=== PATIENT | female | born 1965 | race Caucasian/White ===

== ENCOUNTER 2016-10-01 11:50 | Emergency (ER) | payer OTHER ==
[~2016-10-01] VITALS: Ht 152.4 cm; Wt 59.1 kg
[~2016-10-01 11:50] MED LIST: COLACE 100100 MG/CAP PO; FLEXERIL 1010 MG/TAB PO; GLUCOPHAGE500 MG/TAB PO; MOTRIN 200200 MG/TAB PO; MOTRIN 600600 MG/TAB PO; NATURE'S BLEND1 SG3 PO; NORCO 325 MG-51 TAB PO; PERCOCET 325 MG1 TA2 PO; ROXICODONE 55 MG/TAB PO; ZOFRAN ODT4 MG PO
[2016-10-01 11:53] VITALS: BP 118/78; PULSE 74; TEMP 98.3
[2016-10-01 13:24] LABS: ADJUSTED CALCIUM 9.3 mg/dL (8.4-10.2); ALBUMIN 4.5 gm/dL (3.5-5.0); BASO % 0.5 % (0.0-2.0); BILIRUBIN,TOTAL 0.9 mg/dL (0.0-1.0); CALCIUM 9.7 mg/dL (8.4-10.2); CREATININE, serum 0.48 mg/dL (0.52-1.25); EOS # 0.1 (0.0-0.7); EOS % 1.1 % (0-4.0); GRAN # 4.2 (1.4-6.5); GRAN % 64.5 % (42.2-75.2); HEMATOCRIT 39.8 % (37.0-47.0); HEMOGLOBIN 13.8 g/dl (12.5-16.0); LYMPH # 1.8 (1.2-3.4); LYMPH % 27.8 % (20.0-51.0); MEAN CELL VOLUME 86 fl (80.0-100.0); MEAN CORPUSCULAR HEMOGLOBIN 30 pg (27.0-31.0); MEAN CORPUSCULAR HGB CONC 35 g/dl (33.0-37.0); MEAN PLATELET VOLUME 9.4 fl (7.4-10.4); MONO # 0.4 (0.1-0.6); MONO % 5.8 % (1.7-9.3); PLATELET COUNT 256 K/mm3 (130-400); POTASSIUM 3.9 mmol/L (3.4-5.0); RED BLOOD COUNT 4.61 M/mm3 (4.10-5.30); REDCELL DISTRIBUTION WIDTH-CV 12.7 % (11.5-14.5); TOTAL PROTEIN 8.3 gm/dL (6.4-8.2); WHITE BLOOD COUNT 6.5 K/mm3 (4.8-10.8)
[2016-10-01 13:28] LABS: C-REACTIVE PROTEIN 0.5 mg/dL (0.0-0.9)
[2016-10-01 13:48] LABS: ERYTHROCYTE SEDIMENTATION RATE 12 mm/hr (0-20)
[2016-10-01] MEDS ORDERED: NORCO 325 MG-51 TAB PO (14:56)
[2016-10-01] MEDS ORDERED: PREDFORTE5ML OD (14:56)
== END 2016-10-01 15:08 | disposition home or self-care (01) ==
LOC: COL.ER 11:50
PROVIDERS: Physician Assistant
DX: H20.00 Unspecified acute and subacute iridocyclitis (principal); E11.9 Type 2 diabetes mellitus without complications; I10 Essential (primary) hypertension
CPT/HCPCS: Q9967

== ENCOUNTER 2016-10-16 13:29 | Emergency (ER) | payer OTHER ==
[~2016-10-16] VITALS: Ht 152.4 cm; Wt 70.5 kg
[~2016-10-16 13:29] MED LIST changes: +PREDFORTE5ML OD
[2016-10-16 13:31] VITALS: TEMP 98.4
[2016-10-16] MEDS ORDERED: PROZAC 10MG10 MG PO (13:58)
[2016-10-16] MEDS ORDERED: ZOCOR 10MG10 MG PO (13:59)
[2016-10-16] MEDS ORDERED: PRINIVIL5 MG PO (13:59)
[2016-10-16] MEDS ORDERED: INVOKAMET1 (14:00)
[2016-10-16 14:27] LABS: BASO % 0.5 % (0.0-2.0); EOS % 0.4 % (0-4.0); GRAN # 4.3 (1.4-6.5); GRAN % 75.5 % (42.2-75.2); HEMATOCRIT 43.2 % (37.0-47.0); LYMPH # 0.9 (1.2-3.4); LYMPH % 15.6 % (20.0-51.0); MEAN CELL VOLUME 85 fl (80.0-100.0); MEAN CORPUSCULAR HEMOGLOBIN 29 pg (27.0-31.0); MEAN CORPUSCULAR HGB CONC 35 g/dl (33.0-37.0); MONO # 0.4 (0.1-0.6); MONO % 7.6 % (1.7-9.3); PLATELET COUNT 262 K/mm3 (130-400); RED BLOOD COUNT 5.11 M/mm3 (4.10-5.30); REDCELL DISTRIBUTION WIDTH-CV 12.4 % (11.5-14.5); WHITE BLOOD COUNT 5.7 K/mm3 (4.8-10.8)
[2016-10-16 14:37] LABS: PH 5 (5-8); SQUAMOUS EPITHELIAL 0-2 /hpf; URINE APPEARANCE Clear; URINE BACTERIA None Seen /hpf; URINE BILIRUBIN Negative (NEGATIVE); URINE BLOOD 1+ (NEGATIVE); URINE COLOR Yellow; URINE GLUCOSE 3+ (NEGATIVE); URINE KETONE Trace (NEGATIVE); URINE UROBILINOGEN Negative (NEGATIVE)
[2016-10-16 14:38] LABS: ADJUSTED CALCIUM 9.1 mg/dL (8.4-10.2); ALBUMIN 4.5 gm/dL (3.5-5.0); BILIRUBIN,TOTAL 0.8 mg/dL (0.0-1.0); CALCIUM 9.5 mg/dL (8.4-10.2); CREATININE, serum 0.51 mg/dL (0.52-1.25); POTASSIUM 3.5 mmol/L (3.4-5.0); TOTAL PROTEIN 8.3 gm/dL (6.4-8.2)
[2016-10-16 16:34] VITALS: BP 144/80; PULSE 78
== END 2016-10-16 16:35 | disposition home or self-care (01) ==
LOC: COL.ER 13:29
PROVIDERS: Nurse Practitioner
DX: R10.84 Generalized abdominal pain (principal); T38.3X5A Adverse effect of insulin and oral hypoglycemic [antidiabetic] drugs, initial encounter; R11.2 Nausea with vomiting, unspecified; M54.5 Low back pain; E11.9 Type 2 diabetes mellitus without complications; Z79.84 Long term (current) use of oral hypoglycemic drugs; I10 Essential (primary) hypertension
CPT/HCPCS: J1170; J2405; J7030

== ENCOUNTER → 2017-05-19 | Outpatient (CLI) | payer SELFPAY ==
[~2017-05-19] MED LIST changes: +INVOKAMET1; +PRINIVIL5 MG PO; +PROZAC 10MG10 MG PO; +ZOCOR 10MG10 MG PO
== END ==
LOC: COL.RAD 12:44
DX: N32.89 Other specified disorders of bladder (principal); R10.2 Pelvic and perineal pain; R15.9 Full incontinence of feces; Z90.710 Acquired absence of both cervix and uterus

== ENCOUNTER 2018-04-28 15:50 | Emergency (ER) | payer BC ==
[2018-04-28 16:07] VITALS: TEMP 98
[2018-04-28] MEDS ORDERED: GLUCOPHAGE1000 MG PO (16:24)
[2018-04-28 17:01] LABS: BASO % 0.6 % (0.0-2.0); EOS # 0.1 (0.0-0.7); EOS % 1.8 % (0-4.0); GRAN # 3.8 (1.4-6.5); GRAN % 56.4 % (42.2-75.2); HEMATOCRIT 40.2 % (37.0-47.0); HEMOGLOBIN 13.7 g/dl (12.5-16.0); LYMPH # 2.2 (1.2-3.4); LYMPH % 33.2 % (20.0-51.0); MEAN CELL VOLUME 86 fl (80.0-100.0); MEAN CORPUSCULAR HEMOGLOBIN 29 pg (27.0-31.0); MEAN CORPUSCULAR HGB CONC 34 g/dl (33.0-37.0); MEAN PLATELET VOLUME 9.6 fl (7.4-10.4); MONO # 0.5 (0.1-0.6); MONO % 7.9 % (1.7-9.3); PLATELET COUNT 267 K/mm3 (130-400); RED BLOOD COUNT 4.66 M/mm3 (4.10-5.30); REDCELL DISTRIBUTION WIDTH-CV 12.5 % (11.5-14.5)
[2018-04-28] MEDS ORDERED: TYLENOL W/COD1 UDTAB PO (17:33)
[2018-04-28 18:53] VITALS: BP 136/66; PULSE 69
== END 2018-04-28 18:50 | disposition home or self-care (01) ==
LOC: COL.ER 15:50
PROVIDERS: Emergency Medicine
DX: M77.32 Calcaneal spur, left foot (principal); M77.8 Other enthesopathies, not elsewhere classified; E11.9 Type 2 diabetes mellitus without complications; Z79.84 Long term (current) use of oral hypoglycemic drugs

== ENCOUNTER → 2018-09-29 | Outpatient (CLI) | payer BC ==
[~2018-09-29] MED LIST changes: +GLUCOPHAGE1000 MG PO; +TYLENOL W/COD1 UDTAB PO
== END ==
LOC: COL.RAD 08:04
DX: M77.32 Calcaneal spur, left foot (principal)

== ENCOUNTER → 2018-10-27 | Outpatient (CLI) | payer BC | LOC: MC.RAD 12:30 | DX: Z12.31 Encounter for screening mammogram for malignant neoplasm of breast (principal) ==

== ENCOUNTER → 2018-12-29 | Outpatient (CLI) | payer BC ==
[~2018-12-29] MED LIST changes: +NEXIUM 40MG40 MG PO; +XALATAN EYE DROPS OD
[2018-12-29 15:43] LABS: BASO % 0.6 % (0.0-2.0); EOS # 0.1 (0.0-0.7); EOS % 1.9 % (0-4.0); GRAN # 2.9 (1.4-6.5); HEMATOCRIT 39.6 % (37.0-47.0); HEMOGLOBIN 13.4 g/dl (12.5-16.0); LYMPH # 2.1 (1.2-3.4); LYMPH % 38.2 % (20.0-51.0); MEAN CELL VOLUME 87 fl (80.0-100.0); MEAN CORPUSCULAR HEMOGLOBIN 30 pg (27.0-31.0); MEAN CORPUSCULAR HGB CONC 34 g/dl (33.0-37.0); MEAN PLATELET VOLUME 9.6 fl (7.4-10.4); MONO # 0.3 (0.1-0.6); MONO % 6.1 % (1.7-9.3); PLATELET COUNT 261 K/mm3 (130-400); RED BLOOD COUNT 4.53 M/mm3 (4.10-5.30); REDCELL DISTRIBUTION WIDTH-CV 12.5 % (11.5-14.5)
[2018-12-29 15:45] LABS: INR 0.9 (0.8-3.0); PROTHROMBIN TIME 10.8 SECONDS (9.7-12.8)
[2018-12-29 16:30] LABS: ALBUMIN 4.3 gm/dL (3.5-5.0); BILIRUBIN,TOTAL 0.4 mg/dL (0.0-1.0); CALCIUM 9.8 mg/dL (8.4-10.2); CREATININE, serum 0.54 (0.52-1.25); POTASSIUM 3.8 mmol/L (3.4-5.0); TOTAL PROTEIN 7.5 gm/dL (6.4-8.2)
[2018-12-29 23:32] LABS: HEPATITIS B SURFACE ANTIGEN Negative (Negative)
[2019-01-02 10:33] LABS: CERULOPLASMIN 28.5 mg/dL (())
[2019-01-02 14:22] LABS: ANTISMOOTH MUSCLE ANTIBODY Negative (Negative)
== END ==
LOC: COL.RAD 14:25
PROVIDERS: Physician Assistant
DX: K76.0 Fatty (change of) liver, not elsewhere classified (principal); R12 Heartburn; R11.10 Vomiting, unspecified

== ENCOUNTER 2019-01-03 13:00 | Day surgery (SDC) | payer BC ==
[~2019-01-03] VITALS: Ht 152.4 cm; Wt 70.4 kg
[~2019-01-03 13:00] MED LIST changes: -NEXIUM 40MG40 MG PO; -XALATAN EYE DROPS OD
[2019-01-03] MEDS ORDERED: NEXIUM 40MG40 MG PO (13:24)
[2019-01-03] MEDS ORDERED: XALATAN EYE DROPS OD (13:26)
[2019-01-03 13:29] VITALS: BP 119/60; PULSE 71; TEMP 97.8
--- NOTE | 2019-01-03 14:10 | NUR ---
Initial visit; Patient request for prayer prior to 'Procedure.' Glass Curvature Gauger offered reassurance, comfort and prayer.
[2019-01-03 14:45] VITALS: BP 91/64; PULSE 72; TEMP 97.4
--- NOTE | 2019-01-03 14:45 | NUR ---
Report received from MONIQUE Woodard. Pt brought back to [place] [facility] via cart and this RN assist. Pt ambulates from cart to recliner with RN assist without complications. Monitors on and alarms set. Call light within reach. Pt drowsy but answers all questions appropriately. in room. Pt requests muffin and coffee. Pt denies pain or nausea.
--- NOTE | 2019-01-03 14:55 | NUR ---
Dr. Evangelista in to visit with patient and .
[2019-01-03 15:00] VITALS: BP 111/70; PULSE 66
--- NOTE | 2019-01-03 15:00 | NUR ---
Pt taking food and drink well. Pt alert.
[2019-01-03 15:15] VITALS: BP 113/41; PULSE 69
--- NOTE | 2019-01-03 15:20 | NUR ---
Pt desires to be discharged. Pt denies any pain or nausea or other complications.
[2019-01-03 15:30] VITALS: BP 107/57; PULSE 68
--- NOTE | 2019-01-03 15:35 | NUR ---
Discharge instructions given to patient and . Italian written instructions given. All questions answered to their satisfaction. Handed to them are a thank you card, discharge instructions, diagnosis information, and a discharge med sheet.
--- NOTE | 2019-01-03 15:40 | NUR ---
Pt transferred out of hospital via wheelchair and this RN assist with accompanying to private vehicle driven by .
== END 2019-01-03 15:40 | disposition home or self-care (01) ==
LOC: SDCO 13:00
DX: K21.9 Gastro-esophageal reflux disease without esophagitis (principal); K44.9 Diaphragmatic hernia without obstruction or gangrene; K25.9 Gastric ulcer, unspecified as acute or chronic, without hemorrhage or perforation; K29.70 Gastritis, unspecified, without bleeding; K57.30 Diverticulosis of large intestine without perforation or abscess without bleeding; R19.7 Diarrhea, unspecified; R94.5 Abnormal results of liver function studies; Z90.710 Acquired absence of both cervix and uterus; E11.9 Type 2 diabetes mellitus without complications; Z79.84 Long term (current) use of oral hypoglycemic drugs; E66.9 Obesity, unspecified
CPT/HCPCS: J2704; J7030

== ENCOUNTER → 2019-02-28 | Outpatient (CLI) | payer BC ==
[~2019-02-28] MED LIST changes: +NEXIUM 40MG40 MG PO; +XALATAN EYE DROPS OD
== END ==
LOC: COL.RAD 09:40
DX: K21.9 Gastro-esophageal reflux disease without esophagitis (principal)
CPT/HCPCS: A9537

== ENCOUNTER → 2019-03-06 | Outpatient (CLI) | payer BC | LOC: COL.RAD 07:30 | DX: K21.9 Gastro-esophageal reflux disease without esophagitis (principal) | CPT/HCPCS: A9541 ==

== ENCOUNTER → 2019-08-16 | Outpatient (CLI) | payer BC ==
[2019-08-16 13:50] LABS: ALBUMIN 4.5 gm/dL (3.5-5.0); BILIRUBIN,TOTAL 0.4 mg/dL (0.0-1.0); CALCIUM 9.3 mg/dL (8.4-10.2); CREATININE, serum 0.51 (0.52-1.25); POTASSIUM 3.7 mmol/L (3.4-5.0); TOTAL PROTEIN 7.9 gm/dL (6.4-8.2)
== END ==
LOC: COL.RAD 12:37
PROVIDERS: Physician Assistant
DX: Z01.812 Encounter for preprocedural laboratory examination (principal); R13.10 Dysphagia, unspecified

== ENCOUNTER → 2019-09-21 | Outpatient (CLI) | payer BC ==
--- NOTE | 2019-09-21 08:30 | NUR ---
pt to rad holding area from CT scanner, pt speaks polish but uses phone. c/o watery itching eyes, face slightly flushed. No c/o SOB or wheezing. has faint red rash on portion of back. Order from Dr Maza for Benadryl 50mg IV, INT started #22 to LAC and med given at 0840. b/p153/77, sat 98%, pulse 83, rr at 16
--- NOTE | 2019-09-21 09:02 | NUR ---
PT WALKED TO CART TO REST BAY 1, EYES REMAIN PUFFY, NO OTHER SYMPTOMS, 132/76 96%, PULSE 66 RR AT 16
--- NOTE | 2019-09-21 10:40 | NUR ---
DR BARCLAY CAME TO CHECK ON THE PT AT 1020. PT WAS FEELING BETTER AND THE EYE SWELLING HAD GONE DOWN. INSTRUCTIONS WERE GIVEN TO RETAKE BENADRYL 50 MG PO AT 1200. NURSE WROTE ON THE PT'S ALLERGY CARD THAT SHE IS ALLERGIC TO IV CONTRAST DYE. NO REP PROBLEMS, NO FURTHER HIVES OR SWELLING OF THE EYES. PT WAS TAKEN DOWN STAIRS AMBULATORY BY STAFF. PRESENT. WRITTEN INSTRUCTURES GIVEN TO .
== END ==
LOC: COL.RAD 07:46
DX: N28.9 Disorder of kidney and ureter, unspecified (principal); K29.70 Gastritis, unspecified, without bleeding; K76.0 Fatty (change of) liver, not elsewhere classified; K58.9 Irritable bowel syndrome, unspecified
CPT/HCPCS: J1200; Q9967

== ENCOUNTER → 2019-10-08 | Outpatient (CLI) | payer BC | LOC: COL.RAD 08:09 | DX: M72.2 Plantar fascial fibromatosis (principal) ==

== ENCOUNTER → 2020-05-21 | Outpatient (CLI) | payer BC ==
[2020-05-21 15:08] LABS: BASO % 0.4 % (0.0-2.0); EOS # 0.1 (0.0-0.7); EOS % 1.8 % (0-4.0); GRAN # 2.4 (1.4-6.5); GRAN % 52.4 % (42.2-75.2); HEMATOCRIT 39.3 % (37.0-47.0); HEMOGLOBIN 13.2 g/dl (12.5-16.0); LYMPH # 1.7 (1.2-3.4); LYMPH % 36.8 % (20.0-51.0); MEAN CELL VOLUME 87 fl (80.0-100.0); MEAN CORPUSCULAR HEMOGLOBIN 29 pg (27.0-31.0); MEAN CORPUSCULAR HGB CONC 34 g/dl (33.0-37.0); MEAN PLATELET VOLUME 8.9 fl (7.4-10.4); MONO # 0.4 (0.1-0.6); MONO % 8.4 % (1.7-9.3); PLATELET COUNT 274 K/mm3 (130-400); REDCELL DISTRIBUTION WIDTH-CV 12.1 % (11.5-14.5)
[2020-05-21 15:18] LABS: ALBUMIN 4.6 gm/dL (3.5-5.0); BILIRUBIN,TOTAL 0.6 mg/dL (0.0-1.0); CALCIUM 9.3 mg/dL (8.4-10.2); CREATININE, serum 0.52 (0.52-1.25); TOTAL PROTEIN 7.9 gm/dL (6.4-8.2)
== END ==
LOC: COL.LAB 14:35
PROVIDERS: Internal Medicine Gastroenterology
DX: R14.1 Gas pain (principal); R14.0 Abdominal distension (gaseous); R10.11 Right upper quadrant pain

== ENCOUNTER → 2020-05-29 | Outpatient (CLI) | payer BC | LOC: COL.RAD 11:03 | DX: R10.11 Right upper quadrant pain (principal); R14.0 Abdominal distension (gaseous); R14.1 Gas pain | CPT/HCPCS: A9537; J2805 ==

== ENCOUNTER 2020-06-24 07:22 | Day surgery (SDC) | payer BC ==
[2020-06-24] VITALS (9 sets, daily range): BP systolic 116–138; BP diastolic 59–68; PULSE 62–76; TEMP 97.2–98.5
[~2020-06-24] VITALS: Ht 147.3 cm; Wt 63.2 kg
[2020-06-24] MEDS ORDERED: VITAMIN D 50,1.25 MG PO (08:59)
[2020-06-24] MEDS ORDERED: ZYRTEC 10MG10 MG PO (09:00)
--- NOTE | 2020-06-24 09:46 | NUR ---
Initial visit; Patient and spouse primarily Libyan speaking although were pleased to have [employer] Director offer prayer prior to Mounika's surgical procedure. Patient is [place].
[2020-06-24] MEDS ORDERED: NORCO 325 MG-51 TAB PO (10:47)
--- NOTE | 2020-06-24 11:20 | NUR ---
Pt to [facility] via cart from PACU. Pt drowsy, but awake. Pt rates pain 9/10 to abdomen. Denies nausea. in room. Bandaids to abdomen are clean, dry, and intact x3. VSS. Will continue to monitor. Call light within reach.
--- NOTE | 2020-06-24 11:35 | NUR ---
[place] 5/325mg 1 tablet po given for pain. Pt takes sips of water without difficulties. Crackers given to try to eat. Will continue to monitor. Call light within reach.
--- NOTE | 2020-06-24 11:50 | NUR ---
Pt resting. Pt able to eat a few crackers and is tolerating PO fluids without difficulties. Will continue to monitor. Call light within reach.
--- NOTE | 2020-06-24 12:05 | NUR ---
Pt rates pain 6/10 to abdomen. Pt states "It's a little better." Denies nausea. Call light within reach.
--- NOTE | 2020-06-24 12:35 | NUR ---
Pt up to restroom with stand by assistance. Pt voids without difficulties. Pt back to room. Pt c/o nausea upon returning back to room and had a few dry heaves. Will provide nausea medication per PRN orders. Call light within reach.
--- NOTE | 2020-06-24 13:05 | NUR ---
Pt continues to rest. Zofan 4mg IVSP given at 1253 for c/o nausea. Pt reports her nausea is "Better." Pt requested food and water to drink. Muffin and water provided. Call light within reach.
--- NOTE | 2020-06-24 14:05 | NUR ---
Pt was having pain-rated 6/10 to abdomen [place] 5/325mg 1 tab po given per PRN orders at 1340. Pt rates pain 3/10 at this time. Call light within reach.
--- NOTE | 2020-06-24 14:30 | NUR ---
Discharge instructions reviewed. Pt voices understanding. IV site discontinued with all parts intact. Pt up to dress. Call light within reach.
--- NOTE | 2020-06-24 14:45 | NUR ---
Pt escorted to private car via wheel chair. Pt accompanied home by her .
== END 2020-06-24 14:45 | disposition home or self-care (01) ==
LOC: SDCO 07:22
DX: K81.1 Chronic cholecystitis (principal); E11.9 Type 2 diabetes mellitus without complications; Z90.710 Acquired absence of both cervix and uterus; K59.04 Chronic idiopathic constipation; Z79.84 Long term (current) use of oral hypoglycemic drugs; Z88.2 Allergy status to sulfonamides; Z88.8 Allergy status to other drugs, medicaments and biological substances; Z91.041 Radiographic dye allergy status; Z20.828 Contact with and (suspected) exposure to other viral communicable diseases
CPT/HCPCS: J0690; J1100; J1885; J2405; J2704; J3010; J7120

== ENCOUNTER 2020-10-20 18:55 | Emergency (ER) | payer BC ==
[~2020-10-20] VITALS: Ht 147.3 cm; Wt 64.1 kg
[~2020-10-20 18:55] MED LIST changes: +VITAMIN D 50,1.25 MG PO; +ZYRTEC 10MG10 MG PO
[2020-10-20 19:29] VITALS: TEMP 97.8
[2020-10-20 20:33] VITALS: BP 110/70; PULSE 68
== END 2020-10-20 20:37 | disposition home or self-care (01) ==
LOC: COL.ER 18:55
DX: S01.01XA Laceration without foreign body of scalp, initial encounter (principal); Z88.2 Allergy status to sulfonamides; Z88.8 Allergy status to other drugs, medicaments and biological substances; Z79.84 Long term (current) use of oral hypoglycemic drugs; W22.8XXA Striking against or struck by other objects, initial encounter

== ENCOUNTER → 2020-10-27 | Outpatient (CLI) | payer BC ==
[2020-10-27 15:59] VITALS: BP 146/80; PULSE 71; TEMP 98
== END ==
LOC: COL.ER 15:43
DX: Z48.02 Encounter for removal of sutures (principal)

== ENCOUNTER → 2020-12-12 | Outpatient (CLI) | payer OTHER, BC | LOC: COL.RAD 07:53 | DX: K30 Functional dyspepsia (principal) ==

== ENCOUNTER → 2021-01-10 | Outpatient (CLI) | payer OTHER, BC | LOC: COL.RAD 12:35 | DX: M48.02 Spinal stenosis, cervical region (principal); S46.011A Strain of muscle(s) and tendon(s) of the rotator cuff of right shoulder, initial encounter; M19.011 Primary osteoarthritis, right shoulder; R20.0 Anesthesia of skin; G56.00 Carpal tunnel syndrome, unspecified upper limb ==

== ENCOUNTER → 2021-10-28 | Outpatient (CLI) | payer BC | LOC: COL.RAD 08:33 | DX: R10.11 Right upper quadrant pain (principal); R10.13 Epigastric pain; R10.84 Generalized abdominal pain; Z90.49 Acquired absence of other specified parts of digestive tract ==

== ENCOUNTER → 2021-11-23 | Outpatient (CLI) | payer BC ==
[~2021-11-23] MED LIST changes: +CARAFATE 1GM1 G PO; +EUCRISA TOP
== END ==
LOC: COL.RAD 09:10
DX: M51.34 Other intervertebral disc degeneration, thoracic region (principal); M51.36 Other intervertebral disc degeneration, lumbar region; M51.37 Other intervertebral disc degeneration, lumbosacral region

== ENCOUNTER → 2022-03-02 | Outpatient (CLI) | payer BC | LOC: MC.RAD 09:51 | DX: Z12.31 Encounter for screening mammogram for malignant neoplasm of breast (principal) ==

== ENCOUNTER → 2022-03-04 | Outpatient (CLI) | payer BC | LOC: MC.RAD 12:51 | DX: N64.89 Other specified disorders of breast (principal) ==

== ENCOUNTER → 2022-03-25 | Outpatient (CLI) | payer BC | LOC: MC.RAD 14:43 | DX: N64.89 Other specified disorders of breast (principal) ==

== ENCOUNTER → 2022-03-31 | Outpatient (CLI) | payer BC | LOC: MC.RAD 08:28 | DX: N63.21 Unspecified lump in the left breast, upper outer quadrant (principal) ==

== ENCOUNTER → 2023-06-08 | Outpatient (CLI) | payer BC | LOC: COL.RAD 09:00 | DX: M25.511 Pain in right shoulder (principal); Z98.890 Other specified postprocedural states ==

== ENCOUNTER → 2023-09-02 | Outpatient (CLI) | payer OTHER | LOC: COL.RAD 09:31 | DX: R10.84 Generalized abdominal pain (principal); R14.0 Abdominal distension (gaseous) ==

== ENCOUNTER → 2024-02-17 | Outpatient (CLI) | payer OTHER | LOC: MC.RAD 09:00 | DX: Z12.31 Encounter for screening mammogram for malignant neoplasm of breast (principal) ==